=== PATIENT | female | born 1990 | race Caucasian/White ===

== ENCOUNTER 2019-05-01 19:30 | Emergency (ER) | payer OTHER ==
[~2019-05-01] VITALS: Ht 160 cm; Wt 89.4 kg
[2019-05-01 19:49] VITALS: Ht 160 cm; Wt 89.4 kg
[2019-05-01 21:44] VITALS: BP 121/77
== END 2019-05-01 21:44 | disposition home or self-care (01) ==
LOC: ED 19:30
DX: S01.511A Laceration without foreign body of lip, initial encounter (principal); J45.909 Unspecified asthma, uncomplicated; Z88.6 Allergy status to analgesic agent; W22.8XXA Striking against or struck by other objects, initial encounter; Y93.89 Activity, other specified; Y92.89 Other specified places as the place of occurrence of the external cause; Y99.8 Other external cause status
CPT/HCPCS: J2001